=== PATIENT | female | born 1995 | race Caucasian/White ===

== ENCOUNTER 2016-05-21 13:28 | Emergency (ER) | payer BC ==
[~2016-05-21] VITALS: Ht 160 cm; Wt 83.3 kg
[~2016-05-21 13:28] MED LIST: ANT25 PO; SULF800T23 PO
[2016-05-21 13:32] VITALS: TEMP 36.7; Ht 160 cm; Wt 83.3 kg
[2016-05-21] MEDS ORDERED: SODIUM CHLORIDE 0.9% 1000ML 2,000 ML IV STA (13:39)
[2016-05-21] MEDS ORDERED: ONDANSETRON INJ 2 MG/ML 2 ML VIAL IV STA (13:39)
[2016-05-21] MEDS ORDERED: PROMETHAZINE HCL INJ 6.25 MG in SODIUM CHLORIDE 0.9% 50ML 50 ML IV STA (13:39)
[2016-05-21 14:13] LABS: BASO % 0.2 %; BASO ABS # 0.02 K/uL (0-0.2); COMPLETE YES; EOS % 0.3 %; HEMATOCRIT 43.1 % (37-47); IG% 0.6 %; LYMPH % 18.9 %; LYMPH ABS # 2.15 K/uL (1.2-3.4); MEAN CELL VOLUME 83.4 fL (80-100); MEAN CORPUSCULAR HEMOGLOBIN 28.8 pg (25-34); MEAN CORPUSCULAR HGB CONC 34.6 g/dl (32-36); MONO % 5.4 %; NEUT % 74.6 %; PLATELET COUNT 379 K/uL (130-400); RED BLOOD COUNT 5.17 M/uL (4.2-5.4); WHITE BLOOD COUNT 11.39 K/uL (4.8-10.8)
--- NOTE | 2016-05-21 14:16 | EMERGENCY ROOM VISIT NOTE ---
History Report prepared by Lonny: Tyrone Oliver Under the Supervision of: Dr. Jorge L Hansen M.D. First contact with patient: 13:37 Chief Complaint: VOMITING Stated Complaint: BLOOD IN VOMITING, TIGHT CHEST History of Present Illness The patient is a 21 year old female who presents to the Emergency Room with complaints of persistent bilateral throat pain starting a few days ago. She was evaluated by [facility] a few days ago and she was diagnosed with strep throat. Her lips swelled when she took Amoxicillin as prescribed and she stopped taking it. She last took the antibiotic about 2 days ago. She continues to have sore throat. She also complains of low grade fever, nasal congestion, chest tightness, abdominal pain, diarrhea, and weakness. She started vomiting 4 days ago and notes some blood in her vomit. She reports a reduced fluid intake and feels dehydrated. The patient denies urinary symptoms, or any other complaints. She denies any known recent ill contacts. She has a history of asthma. She denies any history of mono. She denies any chance of . She is on control. Source of History: patient Onset: a few days ago Position: throat (bilateral) Timing: other (persistent) Associated Symptoms: + abdominal pain, + diarrhea, + fevers, + vomiting, + weakness, No urinary symptoms Review of Systems See HPI for pertinent positives & negatives. A total of 10 systems reviewed and were otherwise negative. Past Medical & Surgical Medical Problems: (1) Asthma (2) Shoulder dislocation Family History Diabetes mellitus FH: cancer FH: heart disease FHx: lung disease Hypertension Seizures Social History Smoking Status: Never Smoker Alcohol Use: none Marital Status: single Housing Status: lives with family Occupation Status: employed Current/Historical Medications Scheduled Ondasetron Odt (Zofran Odt), 4-8 MG SL Q6H Allergies Coded Allergies: No Known Allergies (Unverified , 05/21/16) Physical Exam Vital Signs Date Time Temp Pulse Resp B/P Pulse Ox O2 Delivery O2 Flow Rate FiO2 05/21/16 16:12 112 18 137/96 100 05/21/16 15:21 94 16 115/65 98 05/21/16 14:19 87 20 139/75 99 Room Air 05/21/16 13:32 36.7 98 18 143/79 96 Room Air Physical Exam GENERAL: Patient is in no acute distress. HEENT: No acute trauma, normocephalic atraumatic, mucous membranes dry, no nasal congestion, no scleral icterus. No throat erythema or exudate. TMs with some fluid behind them, no signs of infection. NECK: No stridor, no adenopathy, no meningismus, trachea is midline. LUNGS: Clear to auscultation bilaterally, no wheeze, no rhonchi, breath sounds equal. HEART: Without murmurs gallops or rubs, regular rate and rhythm. ABDOMEN: Soft, mildly tender to the lower abdomen bilaterally, bowel sounds positive, no hernias, no peritonitis. EXTREMITIES: No cyanosis or edema, full range of motion of all the joints without pain or difficulty, no signs for acute trauma. NEUROLOGIC: Oriented x 3, no acute motor or sensory deficits, no focal weakness. SKIN: No rash, no jaundice, no diaphoresis. Medical Decision & Procedures ER Provider Diagnostic Interpretation: X-ray results as stated below per interpretation by me and the radiologist: CHEST ONE VIEW PORTABLE CLINICAL HISTORY: EVALUATE ALTERED MENTAL STATUS/WEAKNESS dyspnea COMPARISON STUDY: 06/13/2010 FINDINGS: The bones soft tissues and hemidiaphragms are normal. The cardiomediastinal silhouette is normal. The lungs are clear. The pulmonary vasculature is normal. IMPRESSION: Negative chest. Electronically signed by: Juan R Irwin M.D. 05/21/2016 2:18 PM Dictated Date/Time: 05/21/2016 2:17 PM Laboratory Results 05/21/16 14:00 Red Blood Count 5.17, Mean Corpuscular Volume 83.4, Mean Corpuscular Hemoglobin 28.8, Mean Corpuscular Hemoglobin Concent 34.6, Mean Platelet Volume 10.0, Neutrophils (%) (Auto) 74.6, Lymphocytes (%) (Auto) 18.9, Monocytes (%) (Auto) 5.4, Eosinophils (%) (Auto) 0.3, Basophils (%) (Auto) 0.2, Neutrophils # (Auto) 8.50, Lymphocytes # (Auto) 2.15, Monocytes # (Auto) 0.62, Eosinophils # (Auto) 0.03, Basophils # (Auto) 0.02 05/21/16 14:00 Test 05/21/16 14:00 White Blood Count 11.39 K/uL (4.8-10.8) Red Blood Count 5.17 M/uL (4.2-5.4) Hemoglobin 14.9 g/dL (12.0-16.0) Hematocrit 43.1 % (37-47) Mean Corpuscular Volume 83.4 fL (80-100) Mean Corpuscular Hemoglobin 28.8 pg (25-34) Mean Corpuscular Hemoglobin Concent 34.6 g/dl (32-36) Platelet Count 379 K/uL (130-400) Mean Platelet Volume 10.0 fL (7.4-10.4) Neutrophils (%) (Auto) 74.6 % Lymphocytes (%) (Auto) 18.9 % Monocytes (%) (Auto) 5.4 % Eosinophils (%) (Auto) 0.3 % Basophils (%) (Auto) 0.2 % Neutrophils # (Auto) 8.50 K/uL (1.4-6.5) Lymphocytes # (Auto) 2.15 K/uL (1.2-3.4) Monocytes # (Auto) 0.62 K/uL (0.11-0.59) Eosinophils # (Auto) 0.03 K/uL (0-0.5) Basophils # (Auto) 0.02 K/uL (0-0.2) RDW Standard Deviation 38.2 fL (36.4-46.3) RDW Coefficient of Variation 12.6 % (11.5-14.5) Immature Granulocyte % (Auto) 0.6 % Immature Granulocyte # (Auto) 0.07 K/uL (0.00-0.02) Anion Gap 10.0 mmol/L (3-11) Est Creatinine Clear Calc Drug Dose 94.0 ml/min Estimated GFR () 97.3 Estimated GFR (Non- 83.9 BUN/Creatinine Ratio 15.6 (10-20) Calcium Level 9.5 mg/dl (8.5-10.1) Magnesium Level 2.1 mg/dl (1.8-2.4) Total Bilirubin 0.7 mg/dl (0.2-1) Aspartate Amino Transf (AST/SGOT) 10 U/L (15-37) Alanine Aminotransferase (ALT/SGPT) 24 U/L (12-78) Alkaline Phosphatase 129 U/L (45-117) Total Protein 8.6 gm/dl (6.4-8.2) Albumin 4.4 gm/dl (3.4-5.0) Globulin 4.2 gm/dl (2.5-4.0) Albumin/Globulin Ratio 1.0 (0.9-2) Thyroid Stimulating Hormone (TSH) 0.521 uIu/ml (0.300-4.500) Monoscreen NEG (NEG) Urine dip shows ketone consistent with dehydration, some blood was noted, no signs of infection. Laboratory results reviewed by me. Medications Administered Medications (Trade) Dose Ordered Sig/Pili Route Start Time Stop Time Status Last Admin Dose Admin Sodium Chloride (Nss 1000ml) 2,000 ml @ 999 mls/hr Q2H1M STAT IV 05/21/16 13:39 05/21/16 15:39 DC 05/21/16 14:09 999 MLS/HR Ondansetron HCl 4 mg 4 mg NOW STAT IV 05/21/16 13:39 05/21/16 13:47 DC 05/21/16 14:09 4 MG Promethazine HCl/ Sodium Chloride (Phenergan Inj/ Nss 50ml) 50.25 ml @ 204 mls/hr NOW STAT IV 05/21/16 13:39 05/21/16 13:53 DC 05/21/16 14:09 204 MLS/HR Albuterol (Ventolin Hfa Inhaler) 2 puffs NOW ONCE INH 05/21/16 16:00 05/21/16 16:01 DC 05/21/16 16:10 2 PUFFS ED Course 1337: The patient was evaluated in room A04B. A complete history and physical exam was performed. 1339: Promethazine HCl 6.25 mg/Sodium Chloride 50.25 ml @ 204 mls/hr IV, Zofran Inj 4 mg IV, Sodium Chloride 2000 ml @ 999 mls/hr IV 1559: Reevaluated the patient who feels better. Discussed results and discharge instructions: She verbalized understanding and agreement. The patient is ready for discharge. 1600: Albuterol 2 puffs INH Medical Decision Differential diagnosis includes but is not limited to strep pharyngitis, mono, dehydration, viral illness, tonsillitis, otitis media, anemia, electrolyte imbalance. There is a mild leukocytosis, this could be consistent with infection or just for vomiting. No anemia. No significant electrolyte abnormality, kidney failure or hepatitis. Strep testing was negative. [place] test was negative. Chest film shows no free air, pneumonia or pneumothorax. Urine dip shows evidence for dehydration, no evidence for infection. The patient appears to be in a euthyroid state. The patient presents with flulike symptoms as well as nausea and vomiting and diarrhea. She did receive IV saline, IV Zofran and IV Phenergan. She was given albuterol via MDI. The patient feels improved, she looks well. Her illness is likely viral. As she had a bad reaction to her antibiotic for the potential strep infection, she is going to stop this medication. I will give some Zofran for nausea, a bland and simple diet was suggested. Motrin/Tylenol for pain and fever. If worsening , if not improving, she should return for reassessment. Impression Primary Impression: Dehydration Additional Impressions: Flu-like symptoms Vomiting and diarrhea Scribe Attestation The scribe's documentation has been prepared under my direction and personally reviewed by me in its entirety. I confirm that the note above accurately reflects all work, treatment, procedures, and medical decision making performed by me. Departure Information Dispostion Home / Self-Care Prescriptions Ondasetron Odt (ZOFRAN ODT) 4 Mg Tab 4-8 MG SL Q6H for Nausea, #15 TAB Prov: Jorge L Hansen M.D. 05/21/16 Referrals No Doctor, Assigned (PCP) Forms HOME CARE DOCUMENTATION FORM, IMPORTANT VISIT INFORMATION Patient Instructions My [facility] Additional Instructions bland diet---crackers, soup, toast, gatorade rest motrin and or tylenol for aches and fever zofran 1-2 tab every 6 hours for nausea albuterol 2 puffs as needed for wheezing no more antibiotics for now return if worsening or not improving Problem Qualifiers
--- NOTE | 2016-05-21 14:19 | DIAGNOSTIC IMAGING REPORT ---
CHEST ONE VIEW PORTABLE CLINICAL HISTORY: EVALUATE ALTERED MENTAL STATUS/WEAKNESS dyspnea COMPARISON STUDY: 06/13/2010 FINDINGS: The bones soft tissues and hemidiaphragms are normal. The cardiomediastinal silhouette is normal. The lungs are clear. The pulmonary vasculature is normal. IMPRESSION: Negative chest. Electronically signed by: Juan R Irwin M.D. 05/21/2016 2:18 PM Dictated Date/Time: 05/21/2016 2:17 PM
[2016-05-21 14:29] LABS: BUN/CREATININE RATIO 15.6 (10-20); CALCIUM 9.5 mg/dl (8.5-10.1); CREATININE 0.96 mg/dl (0.60-1.20); MAGNESIUM 2.1 mg/dl (1.8-2.4); POTASSIUM 3.6 mmol/L (3.5-5.1)
[2016-05-21 14:40] LABS: THYROID STIMULATING HORMONE 0.521 uIu/ml (0.300-4.500)
[2016-05-21] MEDS ORDERED: ALBUTEROL HFA 8 GM INHALER INH ONE (16:00)
[2016-05-21] MEDS ORDERED: ONDA4TAB10 SL (16:02)
[2016-05-21 16:12] VITALS: BP 137/96; PULSE 112; O2SAT 100
== END 2016-05-21 16:13 | disposition home or self-care (01) ==
LOC: C.EDB 13:30 → C.EDA 16:13
DX: E86.0 Dehydration (principal); R11.10 Vomiting, unspecified; R19.7 Diarrhea, unspecified; J45.909 Unspecified asthma, uncomplicated

== ENCOUNTER → 2016-07-25 | Outpatient (CLI) | payer BC ==
[~2016-07-25] MED LIST changes: -ANT25 PO; +ONDA4TAB10 SL; -SULF800T23 PO
[2016-07-25 19:43] LABS: LYME DISEASE AB IGG NEG (NEG)
[2016-07-25 19:46] LABS: LYME DISEASE AB IGM EQUIVOCAL (NEG)
[2016-07-30 20:52] LABS: 18KDIGG BAND NONREACTIVE (NONREACTIVE); 23KDIGG BAND NONREACTIVE (NONREACTIVE); 23KDIGM BAND REACTIVE (NONREACTIVE); 28KDIGG BAND NONREACTIVE (NONREACTIVE); 30KDIGG BAND NONREACTIVE (NONREACTIVE); 39KDIGG BAND NONREACTIVE (NONREACTIVE); 39KDIGM BAND NONREACTIVE (NONREACTIVE); 41KDIGG BAND REACTIVE (NONREACTIVE); 41KDIGM BAND REACTIVE (NONREACTIVE); 45KDIGG BAND NONREACTIVE (NONREACTIVE); 58KDIGG BAND NONREACTIVE (NONREACTIVE); 66KDIGG BAND NONREACTIVE (NONREACTIVE); 93KDIGG BAND NONREACTIVE (NONREACTIVE)
== END | disposition home or self-care (01) ==
LOC: C.LAB 17:33
DX: H90.42 Sensorineural hearing loss, unilateral, left ear, with unrestricted hearing on the contralateral side (principal)

== ENCOUNTER → 2016-07-30 | Outpatient (CLI) | payer BC ==
[~2016-07-30] MED LIST changes: +GADAVIST IV PRN
--- NOTE | 2016-07-30 18:47 | DIAGNOSTIC IMAGING REPORT ---
MRI brain BRAIN COMBO FOR IAC CLINICAL HISTORY: H90.42 Left asymmetrical SNHL ASYMMETRIC LEFT SENSORINEURAL HEAR hearing loss TECHNIQUE: MRI multi axial acquisition COMPARISON STUDY: None FINDINGS: Diffusion-weighted images are normal. Signal characteristics of the cerebellar as well as cerebral hemispheres are within normal limits. Ventricular system is midline. Basilar cisterns are unremarkable. Sella and parasellar regions are unremarkable. Internal auditory canals are symmetric. No abnormal postcontrast enhancement. IMPRESSION: Normal study Electronically signed by: Juan R Irwin M.D. 07/30/2016 6:46 PM Dictated Date/Time: 07/30/2016 6:42 PM
== END | disposition home or self-care (01) ==
LOC: C.MRI 17:32
DX: H90.42 Sensorineural hearing loss, unilateral, left ear, with unrestricted hearing on the contralateral side (principal)

== ENCOUNTER 2017-02-20 13:07 | Emergency (ER) | payer BC ==
[~2017-02-20] VITALS: Ht 157.5 cm; Wt 76.4 kg
[2017-02-20 13:17] VITALS: Ht 157.5 cm; Wt 76.4 kg
[2017-02-20] MEDS ORDERED: ONDANSETRON INJ 2 MG/ML 2 ML VIAL IV STA (14:44)
[2017-02-20] MEDS ORDERED: ALBUT/IPRATROP 3MG/0.5MG NEB 3 ML VIAL INH STA (14:44)
[2017-02-20] MEDS ORDERED: SODIUM CHLORIDE 0.9% 1000ML 1,000 ML IV STA (14:44)
[2017-02-20] MEDS ORDERED: KETOROLAC TROMETHAMINE 30 MG/ML VIAL IV STA (14:55)
--- NOTE | 2017-02-20 14:55 | EMERGENCY ROOM VISIT NOTE ---
History First contact with patient: 14:35 Chief Complaint: ILLNESS Stated Complaint: SICK, FEVER, NO APPETITE History of Present Illness The patient is a 21 year old female who presents to the Emergency Room with complaints of nausea, vomiting, diarrhea since last night. Patient states that she recently noticed an embedded tick in her right thigh, she went to [facility] on 02/18 and had the tick removed. She states that she had fevers at that time, and was placed on doxycycline for 21 days, she has been taking this. She has noticed when she takes the doxycycline that she gets sick in her stomach, now she says she can't keep any food or liquids down, and she states " I can barely make it to the bathroom in time because of the diarrhea." She denies any current fevers but has had some chills. She also notes a cough for the past 5 days, and states a history of asthma. She has been taking Robitussin for her cough without improvement. She denies any headaches, neck pain or stiffness, vision changes, chest pain, shortness of breath, dizziness or syncope, abdominal pain, blood in the vomit or stool, urinary symptoms, rash. Review of Systems A complete 10 point review of systems was reviewed with the patient with pertinent positives and negatives as per history of present illness. All else were negative. Past Medical/Surgical History Medical Problems: (1) Asthma (2) Shoulder dislocation Family History Diabetes mellitus FH: cancer FH: heart disease FHx: lung disease Hypertension Seizures Social History Smoking Status: Never Smoker Alcohol Use: none Drug Use: none Marital Status: single Housing Status: lives with family Occupation Status: employed Current/Historical Medications Scheduled Doxycycline Hyclate (Doxycycline Hyclate), 1 TAB PO BID Ondasetron Odt (Zofran Odt), 4 MG SL Q6H Scheduled PRN Dextromethorphan Polistirex (Cough Dm), 10 ML PO Q12 PRN for Cough Allergies Reviewed in chart Physical Exam Vital Signs Date Time Temp Pulse Resp B/P (MAP) Pulse Ox O2 Delivery O2 Flow Rate FiO2 02/20/17 17:02 37.0 104 20 128/86 99 02/20/17 15:22 87 02/20/17 15:12 95 20 124/76 97 Room Air 02/20/17 13:17 37.0 110 18 122/61 95 Room Air Physical Exam CONSTITUTIONAL: Pleasant and cooperative. No acute distress. Mildly dehydrated , but otherwise well appearing and well nourished. HEENT: Normocephalic, atraumatic. Pupils equal, round and reactive to light, EOMI. TMs normal. Pharynx normal. Tacky mucous membranes. NECK: Supple, full active range of motion without discomfort. RESPIRATORY: Clear to auscultation bilaterally with no wheezing, crackles, rhonchi or stridor. Diminished in bases. Equal expansion bilaterally. CARDIOVASCULAR: Regular rate and rhythm with no murmurs, rubs or gallops. Normal peripheral perfusion. No edema. GASTROINTESTINAL: Soft, nontender, nondistended. No palpable masses or HSM. Bowel sounds present in all quadrants. MUSCULOSKELETAL: Full range of motion of all joints without discomfort. INTEGUMENTARY: No rash or other significant dermatologic conditions noted. NEUROLOGIC: Alert and oriented X 4 with normal affect. Cranial nerves II-XII grossly intact. No focal neurologic deficits noted. Medical Decision & Procedures Laboratory Results 02/20/17 14:55 Red Blood Count 5.10, Mean Corpuscular Volume 83.9, Mean Corpuscular Hemoglobin 29.4, Mean Corpuscular Hemoglobin Concent 35.0, Mean Platelet Volume 9.7, Neutrophils (%) (Auto) 74.3, Lymphocytes (%) (Auto) 14.9, Monocytes (%) (Auto) 10.3, Eosinophils (%) (Auto) 0.3, Basophils (%) (Auto) 0.1, Neutrophils # (Auto ) 5.39, Lymphocytes # (Auto) 1.08, Monocytes # (Auto) 0.75, Eosinophils # (Auto ) 0.02, Basophils # (Auto) 0.01 02/20/17 14:55 Test 02/20/17 14:55 White Blood Count 7.26 K/uL (4.8-10.8) Red Blood Count 5.10 M/uL (4.2-5.4) Hemoglobin 15.0 g/dL (12.0-16.0) Hematocrit 42.8 % (37-47) Mean Corpuscular Volume 83.9 fL (80-100) Mean Corpuscular Hemoglobin 29.4 pg (25-34) Mean Corpuscular Hemoglobin Concent 35.0 g/dl (32-36) Platelet Count 239 K/uL (130-400) Mean Platelet Volume 9.7 fL (7.4-10.4) Neutrophils (%) (Auto) 74.3 % Lymphocytes (%) (Auto) 14.9 % Monocytes (%) (Auto) 10.3 % Eosinophils (%) (Auto) 0.3 % Basophils (%) (Auto) 0.1 % Neutrophils # (Auto) 5.39 K/uL (1.4-6.5) Lymphocytes # (Auto) 1.08 K/uL (1.2-3.4) Monocytes # (Auto) 0.75 K/uL (0.11-0.59) Eosinophils # (Auto) 0.02 K/uL (0-0.5) Basophils # (Auto) 0.01 K/uL (0-0.2) RDW Standard Deviation 38.8 fL (36.4-46.3) RDW Coefficient of Variation 12.8 % (11.5-14.5) Immature Granulocyte % (Auto) 0.1 % Immature Granulocyte # (Auto) 0.01 K/uL (0.00-0.02) Anion Gap 10.0 mmol/L (3-11) Est Creatinine Clear Calc Drug Dose 100.5 ml/min Estimated GFR () 114.3 Estimated GFR (Non- 98.7 BUN/Creatinine Ratio 20.0 (10-20) Calcium Level 9.7 mg/dl (8.5-10.1) Total Bilirubin 0.8 mg/dl (0.2-1) Direct Bilirubin 0.2 mg/dl (0-0.2) Aspartate Amino Transf (AST/SGOT) 24 U/L (15-37) Alanine Aminotransferase (ALT/SGPT) 28 U/L (12-78) Alkaline Phosphatase 101 U/L (45-117) Total Protein 8.6 gm/dl (6.4-8.2) Albumin 4.2 gm/dl (3.4-5.0) Lipase 91 U/L (73-393) Medications Administered Medications (Trade) Dose Ordered Sig/Pili Route Start Time Stop Time Status Last Admin Dose Admin Sodium Chloride 1,000 ml @ 999 mls/hr Q1H1M STAT IV 02/20/17 14:44 02/20/17 15:44 DC 02/20/17 15:12 999 MLS/HR Ondansetron HCl (Zofran Inj) 4 mg NOW STAT IV 02/20/17 14:44 02/20/17 14:46 DC 02/20/17 15:11 4 MG Albuterol/ Ipratropium (Duoneb) 3 ml NOW STAT INH 02/20/17 14:44 02/20/17 14:46 DC 02/20/17 15:11 3 ML Ketorolac Tromethamine (Toradol Inj) 15 mg NOW STAT IV 02/20/17 14:55 02/20/17 14:56 DC 02/20/17 15:12 15 MG Albuterol (Ventolin Hfa Inhaler) 2 puffs NOW ONCE INH 02/20/17 16:15 02/20/17 16:16 DC 02/20/17 17:02 2 PUFFS Medical Decision CC: Patient presenting with complaint of nausea with vomiting and diarrhea, cough Interpretation of Labs: No leukocytosis, no anemia, no significant electrolyte abnormality, normal renal function, normal liver enzymes and lipase. Differential Diagnosis: Includes, but not limited to gastroenteritis, food poisoning, gastritis, peptic ulcer disease, cholecystitis, pancreatitis, dehydration, electrolyte abnormality, viral URI, bronchitis, pneumonia, asthma exacerbation, among others. Medication Reconciliation: I attest that I have personally reviewed the patient' s current medication list. Vital signs review: I reviewed the patient's vital signs and interpret them as follows: T: Afebrile; BP: Normotensive; HR: Tachycardic; RR: Within normal limits; Pulse Ox: Within normal limits on room air. Blood pressure screening: The patient was found to have normal blood pressure on screening and does not require follow-up for repeat blood pressure check. Summary: Patient was evaluated at bedside, history and physical exam performed. Patient is alert and oriented, in no acute distress, resting in the stretcher. She does appear mildly dehydrated. Lungs are clear slightly diminished, patient does complain of some tightness with her cough, and reports history of asthma. Orders were placed at bedside for labs, IV fluids for hydration, IV Toradol for body aches, IV Zofran for nausea, Duoneb for cough. Patient discussed with Dr. Jacob, who agrees with my assessment and plan. Labs reviewed as above, no acute abnormalities. Patient reassessed multiple times throughout ED stay, she reports she is feeling much better after fluids, tachycardia is downtrending. Her nausea is improved and she is tolerating oral fluids well. On reassessment, lungs remain clear, no longer diminished in the bases and moving air better. She states her cough is much improved after the neb treatment, she was given albuterol inhaler to take home. Patient was updated on all results and plan for discharge, she was given education regarding the doxycycline, and encouraged to take this with food to help prevent stomach upset. She was encouraged to follow closely with her primary care provider, and was given strict return precautions for return to the emergency department should her symptoms worsen, she verbalized understanding. Patient was discharged home in stable condition and ambulatory. Impression Primary Impression: Viral URI with cough Additional Impression: Nausea, vomiting, and diarrhea Departure Information Dispostion Home / Self-Care Condition GOOD Prescriptions Ondasetron Odt (ZOFRAN ODT) 4 Mg Tab 4 MG SL Q6H for Nausea, #6 TAB Prov: Shivani Marlow CRNP 02/20/17 Referrals No Doctor, Assigned (PCP) Patient Instructions ED Diet Vomiting Diarrhea, ED URI Viral, Pending Sale To [facility] Additional Instructions You have been evaluated in the emergency department for your cough and vomiting/ diarrhea. Always take your doxycycline with food to help prevent stomach upset. You should also being yogurt daily or take a daily probiotic to help reduce stomach irritation and diarrhea. Use the albuterol inhaler TWO puffs every 4-6 hours as needed for cough, wheezing, chest tightness. You should also use this before bed to help prevent coughing so that you can sleep better at night. For body aches or fevers, you can use the following [id number] medicines ( if >12 yo): - Regular strength (325mg/tab) Tylenol (acetaminophen) 2 tabs every 4-6 hours as needed. Do not exceed 10 tablets in a 24 hour period. Avoid taking more than 3000 mg of Tylenol per day. This includes any other sources of acetaminophen you may take on a regular basis. - Regular strength (200 mg/tab) Advil (ibuprofen) 3 tabs every 6-8 hours as needed. Do not exceed a dose of 2400 mg per day. - For best results, alternate dosing of Tylenol and Advil. Drink plenty of fluids to stay well hydrated. Please follow-up with your PCP or at an urgent care in the next few days to be rechecked if your symptoms are not getting any better. Please return to the emergency department if your symptoms worsen over the next 2-3 days despite treatment course outlined above. Return to the emergency department if you develop the following symptoms of: inability to swallow solids , liquids, or drool; excessive wheezing or inability to catch your breath; worsening chest pain, coughing up blood, severe dizziness or passing out; fever or pain that becomes unmanageable with [id number] medications; or any other concerns. Work Instructions Return To Work: 1 day Problem Qualifiers
[2017-02-20] MEDS ORDERED: DOXY1TAB6 PO (15:04)
[2017-02-20] MEDS ORDERED: DEXT1LIQ80 PO (15:04)
[2017-02-20 15:11] LABS: BASO % 0.1 %; BASO ABS # 0.01 K/uL (0-0.2); EOS % 0.3 %; EOS ABS # 0.02 K/uL (0-0.5); HEMATOCRIT 42.8 % (37-47); IG# 0.01 K/uL (0.00-0.02); LYMPH % 14.9 %; LYMPH ABS # 1.08 K/uL (1.2-3.4); MEAN CELL VOLUME 83.9 fL (80-100); MEAN CORPUSCULAR HEMOGLOBIN 29.4 pg (25-34); MEAN PLATELET VOLUME 9.7 fL (7.4-10.4); MONO % 10.3 %; MONO ABS # 0.75 K/uL (0.11-0.59); NEUT % 74.3 %; NEUT ABS # 5.39 K/uL (1.4-6.5); PLATELET COUNT 239 K/uL (130-400); RED CELL DISTRIBUTION WIDTH CV 12.8 % (11.5-14.5); RED CELL DISTRIBUTION WIDTH SD 38.8 fL (36.4-46.3); WHITE BLOOD COUNT 7.26 K/uL (4.8-10.8)
[2017-02-20 15:30] LABS: ALBUMIN 4.2 gm/dl (3.4-5.0); CALCIUM 9.7 mg/dl (8.5-10.1); CREATININE 0.84 mg/dl (0.60-1.20); POTASSIUM 3.8 mmol/L (3.5-5.1)
[2017-02-20 15:35] LABS: TOTAL PROTEIN 8.6 gm/dl (6.4-8.2)
[2017-02-20] MEDS ORDERED: ALBUTEROL HFA 8 GM INHALER INH ONE (16:15)
[2017-02-20] MEDS ORDERED: ONDA4TAB10 SL (16:35)
[2017-02-20 17:02] VITALS: BP 128/86; PULSE 104; TEMP 37; O2SAT 99
== END 2017-02-20 17:09 | disposition home or self-care (01) ==
LOC: C.EDB 13:08 → C.EDC 17:09
DX: J06.9 Acute upper respiratory infection, unspecified (principal); R05 Cough; R11.2 Nausea with vomiting, unspecified; R19.7 Diarrhea, unspecified; J45.909 Unspecified asthma, uncomplicated; Z83.3 Family history of diabetes mellitus; Z82.49 Family history of ischemic heart disease and other diseases of the circulatory system; Z82.0 Family history of epilepsy and other diseases of the nervous system

== ENCOUNTER 2017-05-17 08:54 | Emergency (ER) | payer BC ==
[~2017-05-17] VITALS: Ht 157.5 cm; Wt 73.0 kg
[~2017-05-17 08:54] MED LIST changes: +DEXT1LIQ80 PO; +DOXY1TAB6 PO; -GADAVIST IV PRN
[2017-05-17 08:56] VITALS: TEMP 36.3; Ht 157.5 cm; Wt 73.0 kg
[2017-05-17] MEDS ORDERED: SODIUM CHLORIDE 0.9% 1000ML 1,000 ML IV ONE (09:16)
[2017-05-17] MEDS ORDERED: MECLIZINE HCL 25 MG TAB PO STA (09:16)
[2017-05-17] MEDS ORDERED: ONDANSETRON INJ 2 MG/ML 2 ML VIAL IV STA (09:16)
[2017-05-17] MEDS ORDERED: SODIUM CHLORIDE 0.9% 1000ML 1,000 ML IV STA (09:16)
--- NOTE | 2017-05-17 09:19 | EMERGENCY ROOM VISIT NOTE ---
History Report prepared by Lonny: Benito Hanna Under the Supervision of: Dr. Isaias Coulter M.D. First contact with patient: 09:05 Chief Complaint: VERTIGO Stated Complaint: VERTIGO,VOMITING Nursing Triage Summary: pt reports hand s and legs numb everytime moves head neck hurts and has vertigo. has hx of vertigo. took dramine vomited after taking History of Present Illness The patient is a 22 year old female who presents to the Emergency Room with complaints of constant dizziness beginning about 2 hours ago. The patient states that she first developed pain in the back of her neck 2 hours ago. She notes that whenever she moves her neck, she develops dizziness and vertigo. She also complains of CP, SOB, numbness in her arms/legs, nausea, vomiting, constant left ear ringing, and a headache. She reports that she has been hyperventilating and feeling like she is having a panic attack, which may be causing her chest pain. She is unsure if she has a fever, and denies any trauma and chance of . The patient states that she has had similar episodes of vertigo before for the past few years, but notes that her episodes have not been as bad as her current symptoms. She reports that she saw her family doctor who told her that she had a disc loose in the back of her neck. The patient states that she has been told by one doctor that she has Meniere's disease; however, every other doctor that she has seen has noted that she likely has vertigo instead. She reports that she has a history of Lyme disease from this Summer. The patient states that she took Dramamine this morning but reports that she then threw it up. Source of History: patient Onset: 2 hours ago Position: head Quality: other (dizziness) Timing: constant Associated Symptoms: + headache, + neck pain, + chest pain, + SOB, + nausea , + vomiting, + numbness (in her legs/arms) Note: The patient also complains of constant left ear ringing. Review of Systems See HPI for pertinent positives & negatives. A total of 10 systems reviewed and were otherwise negative. Past Medical & Surgical Medical Problems: (1) Asthma (2) Lyme disease (3) Shoulder dislocation Old medical records were reviewed. Nurse's notes were reviewed and I agree with. Family History Diabetes mellitus FH: cancer FH: heart disease FHx: lung disease Hypertension Seizures Social History Smoking Status: Never Smoker Alcohol Use: none Drug Use: none Marital Status: single Housing Status: lives with family Occupation Status: employed Current/Historical Medications No Active Prescriptions or Reported Meds Allergies Coded Allergies: Amoxicillin (Verified Allergy, Severe, HIVES, 05/17/17) Penicillins (Verified Allergy, Severe, HIVES, 05/17/17) Physical Exam Vital Signs Date Time Temp Pulse Resp B/P (MAP) Pulse Ox O2 Delivery O2 Flow Rate FiO2 05/17/17 11:58 78 18 119/72 99 Room Air 05/17/17 11:11 80 18 121/79 99 Room Air 05/17/17 08:56 36.3 82 18 112/74 98 Room Air Physical Exam General: Mildly ill appearing young female in no acute distress, appears comfortable at rest; however, with movement of head, she looks very dizzy. HEENT: Normal cephalic atraumatic. Pupils are equal round and reactive to light. Normal TMs. Extraocular movements are intact. Oropharynx is pink with moist mucous membranes. No swelling of the mouth lips or tongue. Neck: Supple with a midline trachea. No meningeal signs or stiffness, no JVD or bruits. No Stridor. Chest: Clear to auscultation bilaterally. No wheezes or rhonchi. No increased work of breathing. Heart: regular rate and rhythm. Abdomen: Soft nontender, nondistended without rebound guarding or rigidity. Extremities: No cyanosis clubbing or edema. No calf tenderness or assymetry Spine/Back. Non tender to palpation. No CVA tenderness Skin: Good turgor without rashes. Neurologic exam: Cranial nerves two through 12 are intact. Motor is intact and symmetrical throughout. Subjective decrease to sensation in the arms/legs bilaterally. Medical Decision & Procedures ER Provider Diagnostic Interpretation: Radiology results as stated below per my review and radiologist interpretation: SINGLE VIEW CHEST FINDINGS: An AP, portable, upright chest radiograph is compared to study dated 05/21/2016. The cardiomediastinal silhouette is unremarkable. The lungs and pleural spaces are clear. No pneumothorax is seen. The bony thorax is grossly intact. Bilateral nipple piercings are noted. IMPRESSION: No active disease in the chest. Electronically signed by: Jorge L Laboy M.D. 05/17/2017 9:34 AM Laboratory Results 05/17/17 09:29 Red Blood Count 4.92, Mean Corpuscular Volume 83.3, Mean Corpuscular Hemoglobin 29.9, Mean Corpuscular Hemoglobin Concent 35.9, Mean Platelet Volume 9.7, Neutrophils (%) (Auto) 68.9, Lymphocytes (%) (Auto) 22.7, Monocytes (%) (Auto) 7.6, Eosinophils (%) (Auto) 0.3, Basophils (%) (Auto) 0.2, Neutrophils # (Auto) 7.35, Lymphocytes # (Auto) 2.42, Monocytes # (Auto) 0.81, Eosinophils # (Auto) 0.03, Basophils # (Auto) 0.02 05/17/17 09:29 Test 05/17/17 09:29 White Blood Count 10.66 K/uL (4.8-10.8) Red Blood Count 4.92 M/uL (4.2-5.4) Hemoglobin 14.7 g/dL (12.0-16.0) Hematocrit 41.0 % (37-47) Mean Corpuscular Volume 83.3 fL (80-100) Mean Corpuscular Hemoglobin 29.9 pg (25-34) Mean Corpuscular Hemoglobin Concent 35.9 g/dl (32-36) Platelet Count 345 K/uL (130-400) Mean Platelet Volume 9.7 fL (7.4-10.4) Neutrophils (%) (Auto) 68.9 % Lymphocytes (%) (Auto) 22.7 % Monocytes (%) (Auto) 7.6 % Eosinophils (%) (Auto) 0.3 % Basophils (%) (Auto) 0.2 % Neutrophils # (Auto) 7.35 K/uL (1.4-6.5) Lymphocytes # (Auto) 2.42 K/uL (1.2-3.4) Monocytes # (Auto) 0.81 K/uL (0.11-0.59) Eosinophils # (Auto) 0.03 K/uL (0-0.5) Basophils # (Auto) 0.02 K/uL (0-0.2) RDW Standard Deviation 38.0 fL (36.4-46.3) RDW Coefficient of Variation 12.7 % (11.5-14.5) Immature Granulocyte % (Auto) 0.3 % Immature Granulocyte # (Auto) 0.03 K/uL (0.00-0.02) Anion Gap 9.0 mmol/L (3-11) Est Creatinine Clear Calc Drug Dose 86.2 ml/min Estimated GFR () 97.8 Estimated GFR (Non- 84.4 BUN/Creatinine Ratio 12.4 (10-20) Calcium Level 9.4 mg/dl (8.5-10.1) Total Bilirubin 0.9 mg/dl (0.2-1) Direct Bilirubin 0.2 mg/dl (0-0.2) Aspartate Amino Transf (AST/SGOT) 15 U/L (15-37) Alanine Aminotransferase (ALT/SGPT) 22 U/L (12-78) Alkaline Phosphatase 111 U/L (45-117) Total Protein 8.0 gm/dl (6.4-8.2) Albumin 4.3 gm/dl (3.4-5.0) Lipase 79 U/L (73-393) Human Chorionic Gonadotropin, Qual NEG (NEG) Laboratory studies as stated above per my review. Medications Administered Medications (Trade) Dose Ordered Sig/Pili Route Start Time Stop Time Status Last Admin Dose Admin Sodium Chloride 1,000 ml @ 999 mls/hr Q1H1M STAT IV 05/17/17 09:16 05/17/17 10:16 DC 05/17/17 10:01 999 MLS/HR Sodium Chloride 1,000 ml @ 150 mls/hr Q6H40M ONCE IV 05/17/17 09:16 05/17/17 12:27 DC 05/17/17 10:02 150 MLS/HR Ondansetron HCl (Zofran Inj) 4 mg NOW STAT IV 05/17/17 09:16 05/17/17 09:19 DC 05/17/17 10:02 4 MG Meclizine HCl (Antivert Tab) 25 mg NOW STAT PO 05/17/17 09:16 05/17/17 09:19 DC 05/17/17 10:02 25 MG Lorazepam (Ativan 1MG Home Pack) 1 homepack UD ONCE PO 05/17/17 12:00 05/17/17 12:01 DC 05/17/17 12:05 1 HOMEPACK ECG Per My Interpretation Indication: other (dizziness) Rate (beats per minute): 75 Rhythm: normal sinus Findings: no acute ischemic change, no ectopy, other (Normal intervals) Comparison ECG Date: 06/10/2014 Change: no significant change ED Course 0909: Past medical records reviewed. The patient was evaluated in room B10, and a complete history and physical examination were performed. 0916: Meclizine HCl 25mg PO, Zofran Inj 4mg IV, Sodium Chloride 1000 ml @ 999 mls/hr IV 0956: I reevaluated and updated the patient. She received Zofran. 1037: I rechecked the patient. She still feels a little dizzy. 1200: Upon reevaluation, the patient is stable. I discussed the results and treatment plan with her. She verbalized agreement of the treatment plan. The patient was discharged home. Medical Decision Differential diagnoses include: vertigo, intracranial process, electrolyte/ metabolic abnormalities, hyperventilation, and cardiac disease. This patient comes in as described above. She was placed in room B 10. She has a long history of vertigo and is having symptoms very consistent with that. when she moves her neck, she is also been hyperventilating and feels tingly/ numb in her arms and legs bilaterally. She looks well on exam when she is not moving .she has an otherwise normal neurologic exam. I have reviewed her records she has had extensive workup for this. Her father is at the bedside and will be driving. IV access established hydrated with IV normal saline bolus. she was given Zofran 4 mg IV and meclizine p.o. EKG and blood testing was obtained. She was reassessed frequently. She was ordered for Ativan however did not actually have it because she was asleep and feeling better. She feels up to going home I reviewed her records she has had this chronically. Her EKG does not suggest acute coronary syndrome or arrhythmia. She has no acute electrolyte or metabolic abnormalities. She is not . I do not feel that she needs any neuro imaging. There is nothing to suggest meningitis or encephalitis. I gave her a home pack of Ativan. she can use if needed for dizziness or vomiting. She was warned that this can make her drowsy and do not take for drinking, driving, working. She was happy with plan and was discharged home. She should follow-up with her doctor in 1-2 days for recheck. Medication Reconcilliation Current Medication List: was personally reviewed by me Blood Pressure Screening Patient's blood pressure: Normal blood pressure Blood pressure disposition: Did not require urgent referral Impression Primary Impression: Vertigo Scribe Attestation The scribe's documentation has been prepared under my direction and personally reviewed by me in its entirety. I confirm that the note above accurately reflects all work, treatment, procedures, and medical decision making performed by me. Departure Information Dispostion Home / Self-Care Prescriptions No Active Prescriptions or Reported Meds Referrals No Doctor, Assigned (PCP) Forms HOME CARE DOCUMENTATION FORM, IMPORTANT VISIT INFORMATION, WORK / SCHOOL INSTRUCTIONS Patient Instructions [facility] Additional Instructions Rest. Drink plenty of fluids. Be careful in getting up and down. May use Ativan 0.5 mg every 8 hours if needed for dizziness or nausea Ativan may make you drowsy- do not take before drinking, driving, working or with any other sedating medications Follow-up with your doctor tomorrow for recheck Return if: Worsening of symptoms, fever chills, numbness or weakness, any new problems or concerns
--- NOTE | 2017-05-17 09:36 | DIAGNOSTIC IMAGING REPORT ---
SINGLE VIEW CHEST CLINICAL HISTORY: Atypical chest pain. FINDINGS: An AP, portable, upright chest radiograph is compared to study dated 05/21/2016. The cardiomediastinal silhouette is unremarkable. The lungs and pleural spaces are clear. No pneumothorax is seen. The bony thorax is grossly intact. Bilateral nipple piercings are noted. IMPRESSION: No active disease in the chest. Electronically signed by: Jorge L Laboy M.D. 05/17/2017 9:34 AM Dictated Date/Time: 05/17/2017 9:34 AM
[2017-05-17 09:39] LABS: BASO % 0.2 %; BASO ABS # 0.02 K/uL (0-0.2); EOS % 0.3 %; EOS ABS # 0.03 K/uL (0-0.5); HEMOGLOBIN 14.7 g/dL (12.0-16.0); IG# 0.03 K/uL (0.00-0.02); LYMPH % 22.7 %; LYMPH ABS # 2.42 K/uL (1.2-3.4); MEAN CELL VOLUME 83.3 fL (80-100); MEAN CORPUSCULAR HEMOGLOBIN 29.9 pg (25-34); MEAN CORPUSCULAR HGB CONC 35.9 g/dl (32-36); MEAN PLATELET VOLUME 9.7 fL (7.4-10.4); MONO % 7.6 %; MONO ABS # 0.81 K/uL (0.11-0.59); NEUT % 68.9 %; NEUT ABS # 7.35 K/uL (1.4-6.5); PLATELET COUNT 345 K/uL (130-400); RED CELL DISTRIBUTION WIDTH CV 12.7 % (11.5-14.5); WHITE BLOOD COUNT 10.66 K/uL (4.8-10.8)
[2017-05-17 09:56] LABS: ALBUMIN 4.3 gm/dl (3.4-5.0); CALCIUM 9.4 mg/dl (8.5-10.1); CREATININE 0.95 mg/dl (0.60-1.20); POTASSIUM 3.4 mmol/L (3.5-5.1)
[2017-05-17] MEDS ORDERED: LORAZEPAM 0.5 MG TAB SL STA (10:36)
[2017-05-17 11:58] VITALS: BP 119/72; PULSE 78; O2SAT 99
[2017-05-17] MEDS ORDERED: ATIVAN 1MG HOMEPACK PO ONE (12:00)
== END 2017-05-17 12:07 | disposition home or self-care (01) ==
LOC: C.EDB 08:55
DX: R42 Dizziness and giddiness (principal); J45.909 Unspecified asthma, uncomplicated; Z86.19 Personal history of other infectious and parasitic diseases; Z83.3 Family history of diabetes mellitus; Z80.9 Family history of malignant neoplasm, unspecified; Z82.49 Family history of ischemic heart disease and other diseases of the circulatory system; Z83.6 Family history of other diseases of the respiratory system; Z88.1 Allergy status to other antibiotic agents; Z88.0 Allergy status to penicillin